=== PATIENT | male | born 1960 | race Caucasian/White ===

== ENCOUNTER → 2020-05-01 | Outpatient (CLI) | payer BC ==
[~2020-05-01] MED LIST: ASPIRIN325 PO; EFFIENT10 MG PO; HYDROCHLOROTH12.5 MG PO; LIPITOR20 MG PO; PROTONIX40 M2 PO; SYNTHROID100 MCG PO; TOPROL XL25 MG PO
== END ==
LOC: SJCVCIMAG 13:25
PROVIDERS: ATTEND Internal Medicine
DX: I25.10 Atherosclerotic heart disease of native coronary artery without angina pectoris (principal); I10 Essential (primary) hypertension; E78.5 Hyperlipidemia, unspecified; Z98.61 Coronary angioplasty status